=== PATIENT | male | born 1960 | race Caucasian/White ===

== ENCOUNTER 2016-11-28 07:23 | Day surgery (SDC) | payer OTHER ==
[~2016-11-28] VITALS: Ht 172.7 cm; Wt 73.6 kg
[~2016-11-28 07:23] MED LIST: CICLOPIROX6.6 ML TP; CYANOCOBALAM1000 MCG PO; EYLEA RIGHT EYE; GLYBURIDE5 MG PO; JANUVIA25 M1 PO; LISINOPRIL5 MG PO; LO-DOSE ASPIRIN81 M2 PO; METFORMIN HCL1000 MG PO; OMEPRAZOLE40 M1 PO
[2016-11-28 08:30] LABS: POINT-OF-CARE METER ID UU13113696
[2016-11-28 14:56] VITALS: BP 144/70
[2016-11-28 16:26] LABS: POINT-OF-CARE METER ID UU13113781
[2016-11-28] MEDS ORDERED: METOPROLOL SUCC25 MG PO (16:53)
[2016-11-28] MEDS ORDERED: ATORVASTATIN CA40 MG PO (16:54)
== END 2016-11-28 19:10 | disposition short-term general hospital (02) ==
LOC: CATH 07:23 → 2SOUTH 10:00 → 4EAST 14:28 → CATH 12-01 09:00
PROVIDERS: Internal Medicine Cardiovascular Disease
DX: I25.10 Atherosclerotic heart disease of native coronary artery without angina pectoris (principal); I25.84 Coronary atherosclerosis due to calcified coronary lesion; I25.5 Ischemic cardiomyopathy; E11.9 Type 2 diabetes mellitus without complications; E78.5 Hyperlipidemia, unspecified; I10 Essential (primary) hypertension; I45.19 Other right bundle-branch block
CPT/HCPCS: 82948; 85347; C1769; C1887; G0378; J0153; J1644; J1815; J2250; J3010; J7040; J7050